=== PATIENT | female | born 1955 | race Hispanic/Latino ===

== ENCOUNTER 2018-02-19 09:04 | Day surgery (SDC) | payer BC ==
[~2018-02-19 09:04] MED LIST: LACTATED RINGERS 1,000 ML IV SCH; VERSED IV NR
[2018-02-19] MEDS ORDERED: ANCEF/STERILE WATER 2 GM/20 ML IV NR (09:37)
[2018-02-19] MEDS ORDERED: TORADOL IV PRN (09:50)
[2018-02-19] MEDS ORDERED: DILAUDID IV PRN (09:50)
[2018-02-19] MEDS ORDERED: ZOFRAN IV PRN (09:50)
--- NOTE | 2018-02-19 09:50 | Anesthesia Consultation ---
Anesthesia Consult and Med Hx Date of service: 02/19/18 - Airway Anesthetic Teeth Evaluation: Good, Bridges, Partials ROM Head & Neck: Adequate Mental/Hyoid Distance: Adequate Mallampati Class: Class II Intubation Access Assessment: Probably Good - Pulmonary Exam CTA: Yes - Cardiac Exam Cardiac Exam: RRR - Pre-Operative Health Status ASA Pre-Surgery Classification: ASA2 - Pulmonary Hx Smoking: Yes - Cardiovascular System Hx Hypertension: Yes (1999) - Central Nervous System Hx Psychiatric Problems: Yes - Other Systems Hx Alcohol Use: Yes (GLASS WINE/NIGHT) Hx Substance Use: No Hx Cancer: No
--- NOTE | 2018-02-19 09:50 | Anesthesia Day of Surgery ---
Anesthesia Day of Surgery - Day of Surgery Patient Examined: Yes Patient H&P Reviewed: Yes Patient is NPO: Yes
[2018-02-19] MEDS ORDERED: MARCAINE 0.5% 30 ML INFILTRATI ONE (10:10)
[2018-02-19] MEDS ORDERED: XYLOCAINE 1% 20 mL ONE (10:10)
[2018-02-19] MEDS ORDERED: VERSED ONE (10:25)
[2018-02-19] MEDS ORDERED: DIPRIVAN 10 MG/ML IV ONE (10:25)
[2018-02-19] MEDS ORDERED: SUBLIMAZE ONE (10:25)
[2018-02-19] MEDS ORDERED: QUELICIN ONE (10:26)
[2018-02-19] MEDS ORDERED: XYLOCAINE MPF 2% ONE (10:26)
[2018-02-19] MEDS ORDERED: MARCAINE 0.5% INFILTRATI ONE ×2 (10:57)
[2018-02-19] MEDS ORDERED: XYLOCAINE 1% 20 mL INFILTRATI ONE ×2 (10:58)
[2018-02-19] MEDS ORDERED: NACL 0.9% IR ONE (10:58)
[2018-02-19] MEDS ORDERED: ZOFRAN ONE (11:02)
[2018-02-19] MEDS ORDERED: BLOXIVERZ ONE (11:24)
[2018-02-19] MEDS ORDERED: ROBINUL ONE (11:24)
--- NOTE | 2018-02-19 11:43 | Short Stay Summary ---
Short Stay Documentation Date of service: 02/19/18 Narrative H&P: see dictated H&P - History Principal diagnosis: Posterior Neck Mass H&P: obtained from office - Allergies and Medications Current Medications: Allergies No Known Allergies Allergy (Verified 02/14/18 12:23) Home Medications Medication Instructions Recorded Confirmed Last Taken Type Aspirin [Aspirin EC] 81 mg PO DAILY 02/14/18 02/14/18 5 Days Ago History ~02/14/18 Citalopram [celeXA] 20 mg PO QDAY 02/14/18 02/14/18 02/18/18 History Dextroamphetamine/Amphetamine 20 mg PO BID 02/14/18 02/14/18 1 Month Ago History [Adderall 20 mg Tablet] ~01/19/18 Mv,Calcium,Min/Iron/Folic/Vitk 1 each PO DAILY 02/14/18 02/14/18 02/18/18 History [Essential Woman Tablet] Mesa-3 Fatty Acids/Fish Oil [Eql 1 each PO DAILY 02/14/18 02/14/18 5 Days Ago History Fish Oil 1,000 mg Softgel] ~02/14/18 Pravastatin [Pravachol] 20 mg PO QHS 02/14/18 02/14/18 02/18/18 History RX: Ramipril 10 mg PO DAILY 02/14/18 02/14/18 02/18/18 History Zolpidem [Ambien] 5 mg PO QHS PRN 02/14/18 02/14/18 1 Month Ago History ~01/19/18 Active Medications Cefazolin Sodium (Ancef/Sterile Water 2 Gm/20 Ml) 2 gm IV PREOP NR Stop: 02/19/18 23:50 Hydromorphone HCl (Dilaudid) 0.5 mg IV Q10MIN PRN PRN Reason: Pain , Severe (7-10) Stop: 02/19/18 18:00 Lactated Ringer's (Lactated Ringers) 1,000 mls @ 100 mls/hr IV DIRECT PRASHANTH Last Admin: 02/19/18 09:55 Dose: 100 mls/hr Ketorolac Tromethamine (Toradol) 30 mg IV ONCE PRN PRN Reason: Pain, Moderate (4-6) Stop: 02/19/18 18:00 Midazolam HCl (Versed) 2 mg IV PREOP NR Stop: 02/19/18 23:59 Last Admin: 02/19/18 09:57 Dose: 2 mg Ondansetron HCl (Zofran) 4 mg IV ONCE PRN PRN Reason: Nausea And Vomiting Stop: 02/19/18 18:00 - Physical exam General appearance: no acute distress Integumentary: no rash Lungs: Clear to auscultation Heart: Regular rate Gastrointestinal: normal - Brief post op/procedure progress note Date of procedure: 02/19/18 (dictation#[id number]) Pre-op diagnosis: Posterior Neck Mass Post-op diagnosis: same Procedure: Excision of Posterior Neck Mass Anesthesia: GETA Findings: 3x2.5x1.6cm lipomatous mass Surgeon: MARLYN LOWERY Estimated blood loss: minimal (10cc) Pathology: list (posterior neck mass) Specimen disposition: to lab Condition: stable - Hospital course Hospital course: uneventful - Disposition Condition at discharge: Stable Disposition: DC- TO HOME OR SELFCARE - Discharge Diagnoses (1) Neck mass Status: Acute Comment: Pt did well in surgery Short Stay Discharge Plan Diet: regular Wound: open to air, keep clean and dry, other (apply ice pack for 1 week. May shower in 48 hours) Special Instructions: no heavy lifting (no strenuous activity) Follow up with: ABBEY DYER MD [Primary Care Provider] - 7 Days MARLYN LOWERY MD [Staff Physician] - 7 Days Forms: Outpatient Surgery DC Inst. Prescriptions: HYDROcodone/ACETAMINOPHEN [Hydrocodon-Acetaminophen 5-325] 1 each PO Q6H PRN # 30 tablet PRN Reason: Pain
[2018-02-19] MEDS ORDERED: NORCO 5/325 PO ONE (12:24)
--- NOTE | 2018-02-19 16:15 | Post Anesthesia Evaluation ---
- Post Anesthesia Evaluation Patient Participated: Yes Airway Patent: Yes Stable Respiratory Function: Yes Nausea/Vomiting: No Temp > 96.8F: Yes Pain Manageable: Yes Adequeate Hydration: Yes Anesthesia Complications: No
[2018-02-19 20:36] VITALS: BP 146/76
--- NOTE | 2018-02-20 10:06 | Operative Report ---
PREOPERATIVE DIAGNOSIS: Posterior neck mass. POSTOPERATIVE DIAGNOSIS: Posterior neck mass. PROCEDURE: Excision of posterior neck mass. ATTENDING SURGEON: Suzie Tolbert MD ANESTHESIA: General. ESTIMATED BLOOD LOSS: 10 mL. FINDINGS: A 3 x 2.5 x 1.6 cm mass consistent with lipoma. DRAINS: None. COMPLICATIONS: Stable, transported to Recovery Room. INDICATIONS: This is a 62-year-old female who presented to the office for evaluation of posterior neck mass. The mass was palpable. The patient wished to have an excision due to complaints of discomfort. Procedure, risks, benefits were explained to the patient. Risks included but were not limited to infection, bleeding, pain, injury to surrounding structures, possible need for further surgery in the future. The patient understood and consented. OPERATIVE NOTE: The patient was brought to the operating room and placed on the table in supine position. After adequate general anesthesia was established, the patient was placed in the prone position. All pressure points were padded. Antibiotics had been administered. SCDs were in place, we had marked out the mass in the preop holding area, we marked it out again, sterile prep and drape had been performed. A transverse incision was done. Dissection was carried down to the mass. It was densely adhered on the deep aspect to the surrounding tissue, but we were able to identify the boundaries of the mass, the boundaries were indistinct. It was not a typical lipoma that easily would be evacuated; however, we were able to delineate the boundaries. We did have a small bleeding vessel inferiorly that we were able to with electrocautery. Once the mass was removed, we packed the wound. The mass was passed off the table in sterile fashion. I examined the surrounding area as expected due to the removal of the large mass. The surrounding fat tissue became more prominent on palpation, I examined all the areas thoroughly. I could not find any distinct mass per se. I think they were accentuated now that there was a cavity in the middle. We thoroughly irrigated out the wound. I saw no evidence of any bleeding. We injected 30 mL of a combination of 0.5% Marcaine and 1% lidocaine, 3-0 Vicryl was used to close the dermis with interrupted simple stitches. Skin was closed with 4-0 Monocryl subcuticular stitches. Skin was cleaned and dried. Dermabond was placed. The patient tolerated procedure well. There were no complications. All counts were correct at the end of the case. I did explain that the surrounding tissue may feel prominent to her and to the family. They appreciated the report and will follow up. JOB# [id number] TEJINDER/HUGO
== END 2018-02-19 13:25 | disposition home or self-care (01) ==
LOC: OR 09:04
PROVIDERS: ATTEND Surgery
DX: D17.0 Benign lipomatous neoplasm of skin and subcutaneous tissue of head, face and neck (principal); I10 Essential (primary) hypertension; E78.00 Pure hypercholesterolemia, unspecified; F32.9 Major depressive disorder, single episode, unspecified; Z79.82 Long term (current) use of aspirin
CPT/HCPCS: 11426; 88304; 88341; 88342; J0330; J0690; J2250; J2405; J2704; J2710; J3010; J7120; 88307